=== PATIENT | male | born 1970 | race Hispanic/Latino ===

== ENCOUNTER → 2017-09-29 | Outpatient (CLI) | payer OTHER ==
--- NOTE | 2017-09-29 15:07 | Diagnostic Imaging Report ---
TECHNIQUE: Magnetic resonance imaging of the RIGHT KNEE was performed WITHOUT injected contrast. HISTORY: Injury, fell 2-3 weeks ago COMPARISON: None available. FINDINGS: LIGAMENTS AND TENDONS: ACL: No normal intact fibers, marked attenuation near the expected femoral insertion and laxity of the mid to distal ligament. PCL: Intact Collateral ligaments: Intact Iliotibial band: Unremarkable Popliteal tendon: Intact Extensor mechanism: Intact JOINT: Menisci: Medial: Severe diffuse attenuation and contour irregularity. Peripheral extrusion of the remnants. Lateral: Severe diffuse contour irregularity and moderate attenuation with numerous regional punctate susceptibility artifacts. Peripheral extrusion of the remnants. Articular Cartilage: Medial Compartment: Intermediate to high-grade erosion and fibrillation involving the weight-bearing cartilage of the femoral condyle and tibial plateau. Lateral Compartment: Low to intermediate grade erosion and fibrillation involving the weight-bearing cartilage of the femoral condyle and tibial plateau. Patellofemoral Compartment: No focal defect. Joint Fluid: Small effusion and synovitis along with a minimally distended Jeong's cyst. BONES: No focal or infiltrative bone marrow replacing abnormality. No acute fracture. No bone marrow contusions. SOFT TISSUES: Otherwise, unremarkable. IMPRESSION: 1. Postsurgical versus prominent degenerative tearing of the menisci, acute on chronic tearing may be a consideration given the provided history. 2. High-grade proximal ACL tear, given the absence of bone marrow edema, consider a chronic or acute on chronic tear. 3. Reactive synovitis with associated effusion and minimally distended Jeong's cyst. Signed by: Dr. Rhys Hinojosa D.O., M.M.M. on 09/29/2017 3:03 PM
== END ==
LOC: MRI 13:18
PROVIDERS: ATTEND Family Medicine
DX: S89.91XA Unspecified injury of right lower leg, initial encounter (principal)